=== PATIENT | male | born 1990 | race Caucasian/White ===

== ENCOUNTER 2023-07-23 20:54 | Emergency (ER) | payer BC ==
[~2023-07-23] VITALS: Ht 172.7 cm; Wt 99.8 kg
[2023-07-23 21:30] VITALS: BP 138/82; TEMP 98.8; O2SAT 99
== END 2023-07-23 22:01 | disposition home or self-care (01) ==
LOC: ER 20:54
DX: D75.9 Disease of blood and blood-forming organs, unspecified (principal)

== ENCOUNTER 2024-06-06 19:20 | Emergency (ER) | payer BC ==
[~2024-06-06] VITALS: Ht 172.7 cm; Wt 97.5 kg
[2024-06-06 21:54] LABS: BASOPHILS % (AUTO) 0.3 % (0.0-2.0); EOSINOPHILS # (AUTO) 0.1 K/uL (0.0-0.7); EOSINOPHILS % (AUTO) 0.5 % (0.0-6.0); HEMATOCRIT 45 % (39-51); HEMOGLOBIN 15.6 g/dL (13.5-17.5); LYMPHOCYTES # (AUTO) 3.5 K/uL (0.8-4.8); LYMPHOCYTES % (AUTO) 31.9 % (20.0-44.0); MEAN CORPUSCULAR HEMOGLOBIN 33 PG (26.0-33.0); MEAN CORPUSCULAR HGB CONC 35 g/dl (31.0-36.0); MEAN CORPUSCULAR VOLUME 96 fL (80-96); MONOCYTES % (AUTO) 8.7 % (2.0-12.0); NEUTROPHILS # (AUTO) 6.4 K/uL (1.8-8.9); NEUTROPHILS % (AUTO) 58.6 % (43.0-81.0); PLATELET COUNT (AUTO) 333 K/uL (150-450); RED BLOOD CELL COUNT(AUTO) 4.67 MIL/uL (4.5-6.0); RED CELL DISTRIBUTION WIDTH 11.8 % (11.5-15.0); WHITE BLOOD COUNT (AUTO) 10.9 K/uL (4.3-11.0)
[2024-06-06] MEDS: diphenhydrAMINE HCL 50 MG/ML VIAL IV ONE (22:00)
[2024-06-06] MEDS: METOCLOPRAMIDE HCL 10 MG/2 ML VIAL IV ONE (22:00)
[2024-06-06] MEDS: IV NS 0.9% 1,000 ML BAG IV ONE (22:00)
[2024-06-06] MEDS: ACETAMINOPHEN 325 MG TABLET PO ONE (22:00)
[2024-06-06] MEDS ORDERED: IOHEXOL-350 100 ML VIAL IV ONE (22:08)
[2024-06-06] MEDS ORDERED: IV NS 0.9% 250 ML IV ONE (22:08)
[2024-06-06] MEDS ORDERED: CT SWABBABLE VALVE TRANS SET 1 EA INFUS.SET MC ONE (22:08)
[2024-06-06 22:15] LABS: CALCIUM, SERUM 9.1 mg/dL (8.5-10.1); POTASSIUM 3.6 mmol/L (3.5-5.1)
[2024-06-06 22:18] LABS: ALBUMIN 3.8 g/dL (3.4-5.0); BILIRUBIN,DIRECT 0.2 mg/dL (0.0-0.2); BILIRUBIN,TOTAL 0.8 mg/dL (0.2-1.0)
[2024-06-06] MEDS ORDERED: METOCLOPRAMIDE HCL 10 MG/2 ML VIAL ONE (22:27)
[2024-06-06] MEDS ORDERED: diphenhydrAMINE HCL 50 MG/ML VIAL ONE (22:27)
[2024-06-06] MEDS ORDERED: ACETAMINOPHEN 325 MG TABLET ONE (22:28)
[2024-06-07] MEDS ORDERED: MECL-159 PO (00:27)
[2024-06-07 00:36] VITALS: BP 106/65; TEMP 98.3; O2SAT 97
== END 2024-06-07 00:36 | disposition home or self-care (01) ==
LOC: ER 19:29
DX: R42 Dizziness and giddiness (principal); R51.9 Headache, unspecified; Z20.822 Contact with and (suspected) exposure to COVID-19
CPT/HCPCS: 99285; 96374; 70450; 96361; 96375; 87426; 93005; 85025; 80048; 80076; 83735; 36415; 84484; J1200; J2765; J7030; J7050; Q9967